=== PATIENT | female | born 1990 | race Caucasian/White ===

== ENCOUNTER 2016-11-17 13:35 | Emergency (ER) | payer OTHER ==
[~2016-11-17] VITALS: Ht 170.2 cm; Wt 83.0 kg
--- NOTE | ~2016-11-17 | US61 ---
[facility]. [facility] A Service of [facility] RADIOLOGY TEXT RESULTS PATIENT: JOAN KNOTT JAYDEN LOCATION: SED : 88 UNIT #: [id number] AGE: [address]: DARELL ORTIZ SEX: F ORDER DR: [id number] [address] [address] [id number] E MR#: [id number] Acc #: [id number] NAME: JOAN KNOTT JAYDEN : 1990 SEX: F STUDY DATE/TIME: 11/17/2016 17:09 UNIT: SED ROOM: STUDY DESCRIPTION: US /Mat <[id number] / Attending Physician: Jasmine Guzman Ordering Physician: Physician Non-Staff Primary Care Physician: Primary Care Physician No MEDICAL IMAGING REPORT This report is preliminary unless electronic signature is present. EXAM maternal ultrasound, less than 14 weeks gestation COMPARISON None. INDICATION 25-year-old female, currently with pelvic pain today, light vaginal bleeding for 1 day. Beta quantitative HCG of 952 mIU/mL. FINDINGS Right ovary is not seen on the current exam. Uterus measures 7.7 cm x 3.2 cm x 5 cm. There are multiple nabothian cysts of the cervix. No definite normal intrauterine is seen. At the beginning of the exam the endometrial canal appeared empty but on the termination of the exam there appear to be some thin sliver of fluid with endometrial canal. This does not represent a normal gestational sac. Left ovary measures 3.5 cm x 2.1 cm x 4.2 cm and there is color flow within the left ovary. IMPRESSION 1. No normal intrauterine is seen. Given the beta HCG this could be a normal early . Correlation with serial beta HCG is recommended. Consider obstetric consultation. 2. Multiple nabothian cysts of the cervix. 3. Left ovary is normal without evidence of torsion. The right ovary is not seen on this exam. No definite right adnexal mases are seen. No free fluid. Dictated by... John Green M.D. [facility] A Service of [facility] RADIOLOGY TEXT RESULTS PATIENT: JOAN KNOTT JAYDEN LOCATION: SED : 89 UNIT #: [id number] AGE: [address]: DARELL ORTIZ SEX: F ORDER DR: THIS IS AN ELECTRONICALLY VERIFIED REPORT John Green M.D. at 11/24/2016 6:42 PM Stevie TD: 11/17/2016 21:58 JOB #: [id number] MEDICAL IMAGING REPORT Page 1 of 1
[2016-11-17 15:06] LABS: BASOPHIL% 0.5 % (0-2.5); EOSINOPHIL# 0.2 X10e3 (0-0.7); EOSINOPHIL% 3.1 % (0.0-7.0); HEMATOCRIT 39.8 % (35.0-45.0); HEMOGLOBIN 13.8 gm/dL (12.0-16.0); LYMPHOCYTE# 1.9 X10e3 (1.0-3.5); LYMPHOCYTE% 28.3 % (17.0-45.0); MEAN CELL VOLUME 85.6 FL (83-96); MEAN CORPUSCULAR HEMOGLOBIN 29.6 PG (28-34); MEAN CORPUSCULAR HGB CONC 34.6 g/dL (30-36); MEAN PLATELET VOLUME 8.3 FL (6.5-11.5); MONOCYTE# 0.5 X10e3 (0-1.0); MONOCYTE% 7.1 % (3.0-12.0); NEUTROPHIL# 4.1 X10e3 (1.5-7.1); PLATELET COUNT 283 X10e3 (140-420); RED BLOOD COUNT 4.65 X10e (3.90-5.30); RED CELL DISTRIBUTION WIDTH 12.6 % (11.0-15.5); WHITE BLOOD COUNT 6.7 X10e3 (4.0-10.5)
[2016-11-17 15:10] LABS: DIFF IND NO
[2016-11-17 15:11] LABS: URINE SOURCE CLEAN CATCH
[2016-11-17 15:14] LABS: URINE APPEARANCE CLEAR; URINE BILIRUBIN NEG (NEG); URINE BLOOD 2+ (NEG); URINE COLOR YELLOW; URINE GLUCOSE NEG (NORM); URINE KETONE NEG (NEG); URINE LEUKOCYTE ESTERASE NEG (NEG); URINE NITRATE NEG (NEG); URINE PROTEIN NEG (NEG); URINE SPECIFIC GRAVITY <=1.005 (1.003-1.035); URINE UROBILINOGEN 0.2 MG/DL (NORM)
[2016-11-17 15:15] LABS: MICRO INDICATED? YES
[2016-11-17 15:22] LABS: CULTURE INDICATED? NO; URINE BACTERIA NEG (NEG); URINE SQUAMOUS EPITHELIAL CELL FEW /[HPF]; URINE WBC NEG /[HPF] (0-5)
[2016-11-17 15:27] LABS: CALCIUM SERUM 8.6 mg/dL (8.4-10.2); CREATININE SERUM 0.6 mg/dL (0.6-1.4); GLOM FILT RATE Estimated 125.8 mL/min (>60); POTASSIUM 3.3 mmol/L (3.5-5.1)
== END 2016-11-17 19:57 | disposition home or self-care (01) ==
LOC: SED 13:35
PROVIDERS: Physician Assistant
DX: O20.0 Threatened abortion (principal)
CPT/HCPCS: 36415; 76801; 76817; 80048; 81003; 84702; 85025; 86900; 86901; 99284